=== PATIENT | female | born 1950 | race Caucasian/White ===

== ENCOUNTER 2019-10-28 10:16 | Emergency (ER) | payer MEDICARE ==
[~2019-10-28] VITALS: Ht 182.9 cm; Wt 90.0 kg
[~2019-10-28 10:16] MED LIST: ACET-2319 PO; CALC-1051 PO; CHOL400T14 PO; DIPH25CA83 PO; DOCU-261 PO; DULO60CA65 PO; GLUC-193 PO; MAGN400C PO; MELA3TAB64 PO; MULT-1085 PO; NAPR220C15 PO; OMEGA 3 PO; ONQPUMP ADDCANAL
--- NOTE | 2019-10-28 11:37 | NUR ---
Vascular in room with patient at this time.
[2019-10-28 12:30] VITALS: BP 121/80
== END 2019-10-28 12:33 | disposition home or self-care (01) ==
LOC: ER 10:16
DX: I80.232 Phlebitis and thrombophlebitis of left tibial vein (principal); I95.1 Orthostatic hypotension; Z96.652 Presence of left artificial knee joint; Z91.011 Allergy to milk products; Z91.012 Allergy to eggs; Z79.899 Other long term (current) drug therapy
CPT/HCPCS: 93971; 99284

== ENCOUNTER → 2020-12-12 | Emergency (ER) | payer MEDICARE ==
[~2020-12-12] VITALS: Ht 182.9 cm; Wt 92.2 kg
[~2020-12-12] MED LIST changes: -DOCU-261 PO; +DOCU-337 PO; +HYDR-3965 PO; +HYDROcodone/acetaminophen 10/325mg tab PO ONE; +IBUP-24 PO; +MELA3TAB39 PO; -MELA3TAB64 PO; +etomidate 2mg/ml inj. IV ONE; +fentaNYL/PF 50MCG/1 ML 2ML syringe IV ONE; +morphine 4 MG/ML inj SYRINge IV ONE
[2020-12-12 16:08] VITALS: BP 165/82
[2020-12-12 17:33] LABS: BASOPHILS % (AUTO) 0.2 % (0-1); EOSINOPHILS % (AUTO) 0.1 % (0-6); HEMOGLOBIN 13.1 g/dl (12.0-16.0); LYMPHOCYTES # (AUTO) 1.2 X10'3 (1.1-4.8); LYMPHOCYTES % (AUTO) 12.4 % (21-51); MEAN CORPUSCULAR HEMOGLOBIN 32.2 PG (27.0-31.0); MEAN CORPUSCULAR HGB CONC 33.4 g/dL (33.0-36.5); MEAN CORPUSCULAR VOLUME 96.3 FL (78-98); MEAN PLATELET VOLUME 10.6 FL (7.4-10.4); MONOCYTES # (AUTO) 0.6 X10'3 (0-0.9); NEUTROPHILS # (AUTO) 7.6 X10'3 (1.8-7.7); NEUTROPHILS % (AUTO) 81.3 % (42-75); PLATELET COUNT 129 X10'3 (140-440); RED BLOOD COUNT 4.05 X10'6 (4.20-5.60); RED CELL DISTRIBUTION WIDTH 14.1 % (11.5-14.5); WHITE BLOOD COUNT 9.4 X10'3 (4.5-11.0)
[2020-12-12 17:48] LABS: ALANINE AMINOTRANSFERASE 26 U/L (12-78); ALBUMIN 3.4 G/DL (3.4-5.0); ALBUMIN/GLOBULIN RATIO 1.2 (1.1-1.5); ALKALINE PHOSPHATASE 70 IU/L (46-116); ANION GAP 11 (8-16); ASPARTATE AMINO TRANSFERASE 30 U/L (10-37); BILIRUBIN,TOTAL 0.4 MG/DL (0.1-1.0); BLOOD UREA NITROGEN 13 MG/DL (7-18); BUN/CREATININE RATIO 19.1 (6.6-38.0); CALCIUM 8.8 MG/DL (8.5-10.1); CHLORIDE 103 MMOL/L (99-107); CREATININE 0.68 MG/DL (0.40-0.90); GLUCOSE 115 MG/DL (70-104); POTASSIUM 3.9 MMOL/L (3.5-5.1); SODIUM 139 MMOL/L (135-145); TOTAL CARBON DIOXIDE 25.3 MMOL/L (24-32); TOTAL PROTEIN 6.3 G/DL (6.4-8.2); eGFR 85 ML/MIN
--- NOTE | 2020-12-12 17:48 | NUR ---
Labs drawn, urine sent, awaiting lab results and will send patient home.
[2020-12-12 17:57] LABS: CLARITY,URINE CLOUDY (Clear); COLOR,URINE YELLOW (Yellow); GLUCOSE, URINE NEGATIVE (Neg); KETONES,URINE 15 mg/dl (Neg); LEUKOCYTE ESTERASE ,URINE NEGATIVE (Neg); NITRITES, URINE NEGATIVE (Neg); OCCULT BLOOD,URINE NEGATIVE (Neg); PH,URINE 7.5 (4.8-8.0); PROTEIN,URINE NEGATIVE (Neg); UROBILINOGEN,URINE 0.2 E.U/dL (0.2-1.0)
[2020-12-12 18:13] LABS: PARTIAL THROMBOPLASTIN TIME 25 SECONDS (22-32)
[2020-12-12 18:26] LABS: UA COLLECTION TYPE URINAL
[2020-12-12 18:28] LABS: AMORPHOUS PHOSPHATES 3+; BACTERIA,URINE NONE SEEN /HPF (Neg); MUCUS STRANDS NONE SEEN /LPF (Neg); RBC,URINE NONE SEEN /HPF (0-2); SQUAMOUS EPITHELIAL CELL,UR FEW /LPF (FEW); WBC,URINE 0-4 /HPF (0-4)
== END | disposition home or self-care (01) ==
LOC: ER 10:43
DX: S42.291A Other displaced fracture of upper end of right humerus, initial encounter for closed fracture (principal); Z98.890 Other specified postprocedural states; Z91.012 Allergy to eggs; Z91.011 Allergy to milk products; Z91.018 Allergy to other foods; Z79.899 Other long term (current) drug therapy; W01.0XXA Fall on same level from slipping, tripping and stumbling without subsequent striking against object, initial encounter; Y93.89 Activity, other specified; Y92.89 Other specified places as the place of occurrence of the external cause; Y99.8 Other external cause status
CPT/HCPCS: 23675; 71045; 73020; 73030; 80053; 81001; 83735; 84443; 85025; 85610; 85730; 93005; 96374; 99152; 99153; 99285; J2270; 24505

== ENCOUNTER 2020-12-25 11:29 | Day surgery (SDC) | payer MEDICARE ==
[2020-12-25] VITALS (8 sets, daily range): BP systolic 125–148; BP diastolic 64–88
[~2020-12-25] VITALS: Ht 182.9 cm; Wt 93.8 kg
[~2020-12-25 11:29] MED LIST changes: -ACET-2319 PO; -HYDROcodone/acetaminophen 10/325mg tab PO ONE; -NAPR220C15 PO; -ONQPUMP ADDCANAL; +cefazolin/dext.iso 2gm/100ml 100 ML IV ONE; -etomidate 2mg/ml inj. IV ONE; +famotidine 20mg tablet PO ONE; -fentaNYL/PF 50MCG/1 ML 2ML syringe IV ONE; -morphine 4 MG/ML inj SYRINge IV ONE; +ringers solution, lacted 1,000 ML IV SCH; +vancomycin 1,500 MG in NS 300ml IV soln IV ONE
[2020-12-25] MEDS ORDERED: BUPIVAcaine/PF 2.5 mg/ml (0.25%) 30ml vial ONE (12:59)
[2020-12-25] MEDS ORDERED: BUPIVACAINE liposomal/PF 13.3 MG/ML vial IM ONE (13:00)
[2020-12-25] MEDS ORDERED: BUPIVAcaine 0.5% inj/PF 30 ML ONE (13:08)
[2020-12-25] MEDS ORDERED: midazolam 1 mg/ML 2ml injection ONE (13:18)
[2020-12-25] MEDS ORDERED: propofol inj 20 ML IV ONE (13:18)
[2020-12-25] MEDS ORDERED: fentaNYL/PF 50MCG/1 ML 2ML syringe ONE (13:18)
[2020-12-25] MEDS ORDERED: sevoflurane 250ml liquid IH ONE (13:19)
[2020-12-25] MEDS ORDERED: ePHEDrine 50MG/ML INJ. ONE (13:42)
[2020-12-25] MEDS ORDERED: ringers solution, lacted 1,000 ML IV SCH (14:30)
[2020-12-25] MEDS ORDERED: morphine 2 MG/ML inj. syringe IV PRN (14:30)
[2020-12-25] MEDS ORDERED: meperidine/PF 25mg/ml syringe IV PRN ×3 (14:30)
[2020-12-25] MEDS ORDERED: morphine 4 MG/ML inj SYRINge IV PRN (14:30)
[2020-12-25] MEDS ORDERED: proCHLORperazine 10 MG/2 ml inj IV PRN (14:30)
[2020-12-25] MEDS ORDERED: ondansetron/PF 4mg/2ml inj IV PRN (14:30)
--- NOTE | 2020-12-25 14:49 | NUR ---
Received from OR via , accompanied by Anesthesiologist DR KING and report given by Anesthesiolgist.AWAKENS TO VOICE. VITALS STABLE. DRESSING DI. RUE IN A SIMPLE SLING. FINGERS WARM AND PINK.
--- NOTE | 2020-12-25 16:09 | NUR ---
AWAKE AND ORIENTED. VITALS STABLE. DRESSING DI. HUSSEIN PAIN. HOME WITH HER SPOUSE AT THIS TIME.
== END 2020-12-25 16:09 | disposition home or self-care (01) ==
LOC: PAS 11:29
PROVIDERS: ATTEND Orthopaedic Surgery
DX: S42.251A Displaced fracture of greater tuberosity of right humerus, initial encounter for closed fracture (principal); G89.18 Other acute postprocedural pain; G47.30 Sleep apnea, unspecified; M19.90 Unspecified osteoarthritis, unspecified site; F32.9 Major depressive disorder, single episode, unspecified; F41.9 Anxiety disorder, unspecified; Z96.651 Presence of right artificial knee joint; Z90.49 Acquired absence of other specified parts of digestive tract; Z90.710 Acquired absence of both cervix and uterus; Z98.890 Other specified postprocedural states; Z91.011 Allergy to milk products; Z91.012 Allergy to eggs; Z91.09 Other allergy status, other than to drugs and biological substances; Z91.018 Allergy to other foods; Z80.9 Family history of malignant neoplasm, unspecified; W19.XXXA Unspecified fall, initial encounter; Y93.89 Activity, other specified; Y92.89 Other specified places as the place of occurrence of the external cause; Y99.8 Other external cause status
CPT/HCPCS: 23630; 64415; 73030; 76000; 76942; A6222; C1713; C9290; J2250; J2405; J2704; J3010; J3370; J3490; J7120; A4565; A4618; A6449; A7000; J7040